=== PATIENT | female | born 1970 | race Two or more races ===

== ENCOUNTER 2022-08-04 05:06 | Day surgery (SDC) | payer OTHER ==
[~2022-08-04] VITALS: Ht 152.4 cm; Wt 62.1 kg
[~2022-08-04 05:06] MED LIST: ACID REDUCER20 M1 PO; PEPCID40 MG PO
[2022-08-04] MEDS ORDERED: TRAMADOL HCL50 MG PO (09:36)
[2022-08-04] MEDS ORDERED: TYLENOL ARTHRI650 MG PO (09:36)
[2022-08-04] MEDS ORDERED: MIRALAX17 GM PO (09:36)
== END 2022-08-04 12:25 | disposition home or self-care (01) ==
LOC: CIR.AMB 05:06
PROVIDERS: ATTEND Surgery
DX: K80.10 Calculus of gallbladder with chronic cholecystitis without obstruction (principal); Z20.822 Contact with and (suspected) exposure to COVID-19; I10 Essential (primary) hypertension